=== PATIENT | male | born 1955 | race American Indian/Alaskan Native ===

== ENCOUNTER 2022-03-13 02:58 | Emergency (ER) | payer MEDICARE ==
[2022-03-13] MEDS ORDERED: SODIUM CHLORIDE 0.9% 500 ML 500 ML IV ONE (03:09)
[2022-03-13 03:41] LABS: Hematocrit 49.3 % (35.5-45.6); Hemoglobin 15.8 gm/dl (11.8-15.2); Mean Corpuscular HGB Conc 32 % (32-34); Mean Corpuscular Volume 83 fl (84-94); Platelet Count 145 K/mm3 (140-440); Red Blood Count 5.92 M/mm3 (3.65-5.03); Red Cell Distribution Width 15.4 % (13.2-15.2)
--- NOTE | 2022-03-13 03:42 | XRay Report ---
CHEST 2 VIEWS INDICATION / CLINICAL INFORMATION: Chest Pain. COMPARISON: None available. FINDINGS: SUPPORT DEVICES: None. HEART / MEDIASTINUM: No significant abnormality. LUNGS / PLEURA: No significant pulmonary or pleural abnormality. No pneumothorax. ADDITIONAL FINDINGS: No significant additional findings. IMPRESSION: 1. No acute findings. Signer Name: David Cisse DO Signed: 03/13/2022 3:38 AM Workstation Name: [id number]
[2022-03-13 03:52] LABS: INR 0.93 (0.87-1.13)
[2022-03-13] MEDS ORDERED: NITROGLYCERIN 2% OINT 1 GM TP ONE (03:59)
[2022-03-13 04:04] LABS: Albumin 4.1 g/dL (3.9-5); Calcium 9.4 mg/dL (8.4-10.2)
[2022-03-13 05:07] LABS: Basophils % (Manual) 0 % (0.0-1.8); Eosinophils % (Manual) 0 % (0.0-4.3); Total Cells Counted 100
[2022-03-13 05:08] LABS: Large Platelets Rare; Platelet Estimate Consistent w Auto; RBC Morphology Normal
--- NOTE | 2022-03-13 05:42 | Emergency Department Report ---
ED Chest Pain HPI - General Chief Complaint: Chest Pain Stated Complaint: CHEST PAIN Time Seen by Provider: 03/13/22 03:09 Source: patient, EMS Mode of arrival: Ambulatory Limitations: No Limitations - History of Present Illness Initial Comments: pt came in complaining of chest pain and dizziness MD Complaint: chest pain -: hour(s) Pain Location: left chest Pain Radiation: none Consistency: intermittent Improves With: nothing - Related Data Previous Rx's Medication Instructions Recorded Last Taken Type Ondansetron [Zofran Odt] 4 mg PO Q8HR 3 Days #9 tab.rapdis 03/13/22 Unknown Rx Allergies Allergy/AdvReac Type Severity Reaction Status Date / Time No Known Allergies Allergy Verified 03/13/22 04:03 Heart Score - HEART Score History: Slightly suspicious EKG: Normal Age: > 65 Risk factors: 1-2 risk factors Troponin: < normal limit HEART Score: 3 - EKG Read Time Time EKG Completed: 11:33 EKG Read Time: 11:34 ED Review of Systems ROS: Stated complaint: CHEST PAIN Other details as noted in HPI Constitutional: denies: chills, fever Eyes: denies: eye pain, eye discharge, vision change ENT: denies: ear pain, throat pain Respiratory: denies: cough, shortness of breath, wheezing Cardiovascular: denies: chest pain, palpitations Endocrine: no symptoms reported Gastrointestinal: denies: abdominal pain, nausea, diarrhea Genitourinary: denies: urgency, dysuria Musculoskeletal: denies: back pain, joint swelling, arthralgia Skin: denies: rash, lesions Neurological: denies: headache, weakness, paresthesias Psychiatric: denies: anxiety, depression Hematological/Lymphatic: denies: easy bleeding, easy bruising ED Past Medical Hx - Past Medical History Previous Medical History?: No - Surgical History Past Surgical History?: No Additional Surgical History: surgery on his side - Social History Smoking Status: Never Smoker Substance Use Type: None - Medications Home Medications: Home Medications Medication Instructions Recorded Confirmed Last Taken Type Ondansetron [Zofran Odt] 4 mg PO Q8HR 3 Days #9 tab.rapdis 03/13/22 Unknown Rx ED Physical Exam - General Limitations: No Limitations General appearance: alert, in no apparent distress - Head Head exam: Present: atraumatic, normocephalic - Eye Eye exam: Present: normal appearance - ENT ENT exam: Present: mucous membranes moist - Neck Neck exam: Present: normal inspection - Respiratory Respiratory exam: Present: normal lung sounds bilaterally. Absent: respiratory distress - Cardiovascular Cardiovascular Exam: Present: regular rate, normal rhythm. Absent: systolic murmur, diastolic murmur, rubs, gallop - GI/Abdominal GI/Abdominal exam: Present: soft - Rectal Rectal exam: Present: deferred - Extremities Exam Extremities exam: Present: normal inspection - Back Exam Back exam: Present: normal inspection - Neurological Exam Neurological exam: Present: alert, oriented X3 - Psychiatric Psychiatric exam: Present: normal affect, normal mood - Skin Skin exam: Present: warm, dry, intact, normal color. Absent: rash ED Course Vital Signs 03/13/22 03/13/22 03/13/22 03:15 03:31 03:45 Temperature Pulse Rate 100 H 94 H 91 H Respiratory 28 H 25 H 25 H Rate Blood Pressure 138/71 138/71 138/71 Blood Pressure [Left] O2 Sat by Pulse 95 97 95 Oximetry 03/13/22 03/13/22 03/13/22 03:52 03:56 04:00 Temperature 99.2 F Pulse Rate 94 H Respiratory 17 17 Rate Blood Pressure Blood Pressure 150/72 [Left] O2 Sat by Pulse 97 97 Oximetry 03/13/22 03/13/22 03/13/22 04:01 04:09 04:15 Temperature Pulse Rate 93 H 92 H 91 H Respiratory 13 19 Rate Blood Pressure 150/72 150/72 150/72 Blood Pressure [Left] O2 Sat by Pulse 96 96 Oximetry 03/13/22 03/13/22 03/13/22 04:31 04:45 05:01 Temperature Pulse Rate 89 92 H 91 H Respiratory 23 20 21 Rate Blood Pressure 130/66 130/66 127/59 Blood Pressure [Left] O2 Sat by Pulse 94 94 96 Oximetry 03/13/22 03/13/22 03/13/22 05:15 05:45 06:01 Temperature Pulse Rate 89 86 89 Respiratory 20 20 17 Rate Blood Pressure 127/59 124/66 131/70 Blood Pressure [Left] O2 Sat by Pulse 95 96 96 Oximetry 03/13/22 03/13/22 06:15 08:05 Temperature 98.5 F Pulse Rate 88 76 Respiratory 19 13 Rate Blood Pressure 131/70 Blood Pressure 131/78 [Left] O2 Sat by Pulse 98 96 Oximetry ED Medical Decision Making - Lab Data Result diagrams: 03/13/22 07:15 03/13/22 03:26 - EKG Data -: EKG Interpreted by Me EKG shows normal: sinus rhythm - EKG Data When compared to previous EKG there are: no significant change Interpretation: no acute changes - Radiology Data Radiology results: report reviewed, image reviewed Critical care attestation.: If time is entered above; I have spent that time in minutes in the direct care of this critically ill patient, excluding procedure time. ED Disposition Clinical Impression: Abdominal pain, Leukocytosis, Left against medical advice Disposition: LEFT AGAINST MEDICAL ADVICE Is pt being admited?: No Does the pt Need Aspirin: No Condition: Stable Instructions: Abdominal Pain, Adult, Onlw-ho-Wnvi Additional Instructions: It was strongly advised that you remain to undergo CAT scan of your abdomen and pelvis to further determine the cause of your elevated white blood cell count and complaints of an upset stomach. By leaving AGAINST MEDICAL ADVICE you are excepting risks that there could be a life-threatening cause of your abdominal pain that could not be evaluated today. You are excepting all risks associated with this. Please contact your doctor today to schedule an immediate follow-up appointment for reassessment. Return to the nearest emergency department if you develop severe or worsening abdominal pain, vomiting, dizziness, lightheadedness, recurrent chest pain, or if any other new worrisome symptoms develop. Prescriptions: Ondansetron [Zofran Odt] 4 mg PO Q8HR 3 Days #9 tab.rapdis Referrals: PRIMARY CARE, [Primary Care Provider] - 3-5 Days
[2022-03-13] MEDS ORDERED: ALUM-MAG HYDROXIDE-SIMETHICONE 200-200-20MG/5ML ORAL LIQD 30 ML PO ONE (06:37)
[2022-03-13] MEDS ORDERED: FAMOTIDINE 20 MG/2 ML INJ IV ONE (06:37)
--- NOTE | 2022-03-13 06:45 | Event Note ---
Date: 03/13/22 Pt signed out to me @ 06:08am by Dr. Westbrook. See Dr. Westbrook's documentation concerning his initial provider evaluation/management of the patient. 06:13am: I spoke to the patient independently. pt is a 66yo M w/hx of HTN, chronic etoh usage (pt states he drinks alcohol~4-5 days/week), p/w chest pain. He states he was in the process of having finished a bottle of wine on his own, when he felt a burning pain in his chest. Pain was burning, cramping and constant. He states prior to that he had eaten chicken. No sob, no difficulty breathing, no palpitations. He states pain resolved upon his arrival to the ER several hours ago. No nvfc or diarrhea. No recent prolonged travel hx or immobilization. No pain/swelling in his legs. Pain currently 0/10. Physical Exam: Gen: elderly male, very well appearing, speaking in full sentences, comfortable appearing, nad HEENT: NCAT PERRL EOMI; sclerae anicteric NECK: FROM, no cervical lad, no nuchal rigidity; no jvd, no carotid CVS: S1 is 2 regular rate and rhythm no gallops rubs or murmurs, chest wall nontender, no crepitus, no palpable masses, no erythema, no rashes, no shingles or zoster Pulmonary: Clear to auscultation bilaterally, no wheezes rales or rhonchi GI: Abdomen soft nondistended nontender no guarding or rebound tenderness no palpable deformities or step-offs no pulsatile masses Extremities: No cyanosis no clubbing no edema Integumentary: Skin is warm dry intact, no petechia no purpura no abscess no lacerations no evidence of trauma no evidence of infection Psych: Calm, cooperative, mood affect normal, pleasant, does not appear to be clinically intoxicated or under the influence of any mood altering substances Neuro: Awake alert and oriented to person place time situation, mentating well, cranial nerves II through XII intact, no focal neurodeficits, no asterixis no tremors no tongue fasciculations, 5 out of 5 motor extremity upper extremity lower extremity bilaterally ER course: 8:24 AM. I informed the patient that his white blood cell count has increased to 16.6 from his initial for lab value and I am certain as to the cause. In reviewing HPI patient reports he is developed "an upset stomach" while being in the ER. I informed him that I am strongly advising that he undergo a CAT scan of his abdomen pelvis to rule out acute surgical intra-abdominal pathology such as acute appendicitis, perforated viscus, cholecystitis, and all other potentially life-threatening intra-abdominal processes that can be diagnosed during his visit today. The patient is awake alert and oriented to person place time situation and is mentating well. Per my clinical decision he has decision- making capacity. He is not altered and he does not have any evidence of being an extremis. Risk of leaving AMA were discussed with him at length. Patient informed that risk included but were not limited to: Aortic dissection, aortic aneurysm, pancreatitis, splenic infarct, intra-abdominal bleeding, renal obstruction, renal abscess, perforated viscus, bowel obstruction, acute appendicitis, multiorgan failure, need for CPR, infertility, broken ribs, need for tracheostomy, need to be placed on a ventilator, paralysis, prolonged periods of low to no oxygen to brain, chronic bedbound state, , and all other known and unknown risk. He is able to explain these risks to me in his own words in layman's terms and does not appear to be confused. His explanations appear appropriate. Patient however states that in the setting of understanding these risks, he is refusing to remain for diagnostic imaging as needed is requesting to be discharged home. Patient signed out AGAINST MEDICAL ADVICE. Medical decision making 66-year-old male with history of hypertension, chronic alcohol use, presents for evaluation of what he states is now resolved chest pain. Vital signs stable. Patient was seen and evaluated by ED attending, Dr. Westbrook. See patient's electronic health record for his documented evaluation impression and plan for the patient. Due to change in provider shift time, patient was signed out to me for further management. Patient is well-appearing here but given his report that the symptoms he felt were burning in nature and he verbalized that he believes it was acid reflux, Pepcid and GI cocktail were given to him here today. He was reassessed and remains very well-appearing and denies any active or reoccurring chest pain. Repeat troponin grossly unremarkable. Repeat EKG unremarkable. Wells score 0. Heart score 2. I repeatedly advised the patient to undergo CT scan abdomen pelvis due to his complaints of now development of abdominal pain as well as concomitant increasing white blood cell count on repeat lab examination. The patient ref used and signed out AGAINST MEDICAL ADVICE.
[2022-03-13 07:03] LABS: Bilirubin,Urine NEG (Negative); Blood,Urine LG (Negative); Color,Urine Yellow (Yellow); Protein,Urine <15 mg/dL mg/dL (Negative); Urobilinogen,Urine < 2.0 mg/dL (<2.0)
[2022-03-13 07:08] LABS: Mucus,Urine FEW /HPF
[2022-03-13 07:12] LABS: Amphetamine Screen,Urine Negative; Benzodiazepines Screen,Urine Negative; Cannabinoid Screen,Urine Negative; Cocaine Screen,Urine Negative; Methadone Screen,Urine Negative; Opiate Screen,Urine Negative
[2022-03-13 07:31] LABS: Basophils % (Auto) 0.3 % (0.0-1.8); Hematocrit 45.9 % (35.5-45.6); Hemoglobin 14.8 gm/dl (11.8-15.2); Lymphocytes # (Auto) 0.7 K/mm3 (1.2-5.4); Lymphocytes % (Auto) 4.2 % (13.4-35.0); Mean Corpuscular HGB Conc 32 % (32-34); Mean Corpuscular Volume 83 fl (84-94); Monocytes # (Auto) 1.4 K/mm3 (0.0-0.8); Monocytes % (Auto) 8.5 % (0.0-7.3); Platelet Count 138 K/mm3 (140-440); Red Blood Count 5.53 M/mm3 (3.65-5.03); Red Cell Distribution Width 15.3 % (13.2-15.2)
[2022-03-13 08:07] VITALS: BP 131/78
--- NOTE | 2022-03-13 09:55 | Electrocardiograph Report ---
[facility] Test Date: 2022-03-13 Test Time: 03:17:17 Pat Name: AALIYAH LAURA Department: Room: Gender: M Processing Operator: PRACHI : 1955 Requested By: JACKIE LUCIO Order Number: [id number] Reading MD: Sudhakar Amaya Measurements Intervals Freedom Rate: 96 P: 63 VT: 163 QRS: -17 QRSD: 80 T: 39 QT: 349 QTc: 442 Interpretive Statements Sinus rhythm Left atrial enlargement Probable left ventricular hypertrophy Inferior infarct, old No previous ECG available for comparison Electronically Signed On 03-13-2022 9:54:19 EDT by Sudhakar Amaya
== END 2022-03-13 09:40 | disposition left against medical advice (07) ==
LOC: ED 02:58
DX: R10.9 Unspecified abdominal pain (principal); D72.829 Elevated white blood cell count, unspecified
CPT/HCPCS: 36415; 71045; 80053; 80307; 81001; 82550; 83690; 83880; 84484; 85007; 85025; 85610; 93005; 96374; 99284; J3490; J7040; 80320; 99285; G0480

== ENCOUNTER 2022-03-21 12:07 | Emergency (ER) | payer MEDICARE ==
[2022-03-21 12:58] VITALS: BP 155/85
== END 2022-03-21 19:20 | disposition left against medical advice (07) ==
LOC: ED 12:07
DX: R11.0 Nausea (principal); Z53.21 Procedure and treatment not carried out due to patient leaving prior to being seen by health care provider